=== PATIENT | female | born 1985 | race Caucasian/White ===

== ENCOUNTER 2016-07-17 08:00 | Outpatient (CLI) | payer MEDICAID | END 2016-07-17 08:01 | disposition home or self-care (01) | DX: Z13.9 Encounter for screening, unspecified (principal); M13.849 Other specified arthritis, unspecified hand ==

== ENCOUNTER 2019-08-03 13:28 | Outpatient (CLI) | payer MEDICAID ==
[2019-08-03 18:19] LABS: BASOPHILS % (AUTO) 0.4 %; EOSINOPHILS # (AUTO) 0.2 10^3/uL (0.0-0.7); EOSINOPHILS % (AUTO) 2.8 %; LYMPHOCYTES % (AUTO) 35.2 %; MEAN CORPUSCULAR HEMOGLOBIN 27.8 pg (27.0-31.0); MEAN CORPUSCULAR VOLUME 86.8 fL (81.0-99.0); MEAN PLATELET VOLUME 12.2 fL (7.9-10.8); MONOCYTES # (AUTO) 0.4 10^3/uL (0.0-1.0); MONOCYTES % (AUTO) 7.3 %; NEUTROPHILS # (AUTO) 3.1 10^3/uL (1.5-6.6); NEUTROPHILS % (AUTO) 53.9 %; PLT - PLATELET COUNT 192 10^3/uL (130-450); RED BLOOD COUNT 4.68 10^6/uL (4.20-5.40); RED CELL DISTRIBUTION WIDTH 13.6 % (12.0-15.0); WHITE BLOOD COUNT 5.7 x10^3/uL (4.8-10.8)
[2019-08-03 18:43] LABS: ALBUMIN 4.6 g/dL (3.2-5.5); ALBUMIN/GLOBULIN RATIO 1.8 (1.0-2.2); ALKALINE PHOSPHATASE 55 IU/L (42-121); ALT ALANINE AMINOTRANSFERASE 22 IU/L (10-60); AST ASPARTATE AMINOTRANSFERASE 20 IU/L (10-42); BILIRUBIN,TOTAL 0.6 mg/dL (0.2-1.0); BUN - BLOOD UREA NITROGEN 7 mg/dL (6-20); CALCIUM 9.1 mg/dL (8.5-10.3); CARBON DIOXIDE - CO2 26 mmol/L (21-32); CHLORIDE 106 mmol/L (101-111); CHOL/HDL RATIO 5.4 (<4.4); CHOLESTEROL 205 mg/dL; CREATININE 0.6 mg/dL (0.4-1.0); GFR - MDRD 115 (>89); GLUCOSE 96 mg/dL (70-100); HDL CHOLESTEROL 38 mg/dL; LDL CHOLESTEROL,CALCULATED 103 mg/dL; LDL/HDL RATIO 2.7 (<4.4); SODIUM 139 mmol/L (135-145); TOTAL PROTEIN 7.2 g/dL (6.7-8.2); VLDL CHOLESTEROL 64 mg/dL
== END 2019-08-03 23:59 | disposition home or self-care (01) ==
LOC: LAB.N 13:28
PROVIDERS: ATTEND Nurse Practitioner Gerontology
DX: Z00.00 Encounter for general adult medical examination without abnormal findings (principal)
CPT/HCPCS: 36415; 80050; 80061; 83721

== ENCOUNTER 2019-11-30 14:26 | Outpatient (CLI) | payer MEDICAID ==
--- NOTE | 2019-11-30 16:36 | XRAY Report ---
PROCEDURE: Foot 3 View RT INDICATIONS: CHRONIC PAIN OVER FIBULA RIGHT TECHNIQUE: 3 views of the foot were acquired. COMPARISON: None FINDINGS: Bones: No fractures or dislocations. No suspicious bony lesions. Soft tissues: No tibiotalar joint effusion. Achilles tendon appears normal. IMPRESSION: Unremarkable radiographic examination of right foot. Reviewed by: Mart Santiago MD on 11/30/2019 4:34 PM PDT Approved by: Mart Santiago MD on 11/30/2019 4:34 PM PDT Station ID: [id number]
== END 2019-11-30 14:27 | disposition home or self-care (01) ==
LOC: DI 14:26
PROVIDERS: ATTEND Podiatrist
DX: M79.671 Pain in right foot (principal); G89.29 Other chronic pain

== ENCOUNTER 2020-08-15 07:00 | Outpatient (CLI) | payer MEDICAID ==
--- NOTE | 2020-08-15 12:30 | XRAY Report ---
PROCEDURE: Lumbar Spine 2 View INDICATIONS: LUMBAR RADICULOPATHY TECHNIQUE: 2 views of the lumbar spine were acquired. COMPARISON: None. FINDINGS: No fracture. Scattered multilevel endplate spurring and diffuse facet arthropathy. Mild narrowing of the L5-S1 disc space. Soft tissues: Overlying bowel gas pattern is normal. No suspicious soft tissue calcifications. IMPRESSION: Mild lumbar spondylosis, most pronounced at L5-S1. Reviewed by: Arnulfo Cortes MD on 08/15/2020 12:28 PM PST Approved by: Arnulfo Cortes MD on 08/15/2020 12:28 PM PST Station ID: [id number]
== END 2020-08-15 23:59 | disposition home or self-care (01) ==
LOC: DI.N 07:00
PROVIDERS: ATTEND Family Medicine
DX: M47.816 Spondylosis without myelopathy or radiculopathy, lumbar region (principal); M47.817 Spondylosis without myelopathy or radiculopathy, lumbosacral region

== ENCOUNTER 2022-10-30 11:54 | Outpatient (CLI) | payer MEDICAID ==
[2022-10-30 17:48] LABS: BASOPHILS % (AUTO) 0.6 %; EOSINOPHILS # (AUTO) 0.2 10^3/uL (0.0-0.7); EOSINOPHILS % (AUTO) 3.4 %; HCT - HEMATOCRIT 41.6 % (37.0-47.0); HGB - HEMOGLOBIN 13.4 g/dL (12.0-16.0); LYMPHOCYTES # (AUTO) 1.8 10^3/uL (1.5-3.5); LYMPHOCYTES % (AUTO) 28.4 %; MEAN CORPUSCULAR HEMOGLOBIN 28.8 pg (27.0-31.0); MEAN CORPUSCULAR HGB CONC 32.2 g/dL (32.0-36.0); MEAN CORPUSCULAR VOLUME 89.3 fL (81.0-99.0); MEAN PLATELET VOLUME 12.5 fL (7.9-10.8); MONOCYTES # (AUTO) 0.3 10^3/uL (0.0-1.0); MONOCYTES % (AUTO) 5.5 %; NEUTROPHILS # (AUTO) 3.8 10^3/uL (1.5-6.6); NEUTROPHILS % (AUTO) 61.6 %; PLT - PLATELET COUNT 224 10^3/uL (130-450); RED BLOOD COUNT 4.66 10^6/uL (4.20-5.40); RED CELL DISTRIBUTION WIDTH 13.9 % (12.0-15.0); WHITE BLOOD COUNT 6.2 x10^3/uL (4.8-10.8)
[2022-10-30 18:20] LABS: ALBUMIN 4.5 g/dL (3.2-5.5); ALBUMIN/GLOBULIN RATIO 1.6 (1.0-2.2); ALKALINE PHOSPHATASE 74 IU/L (42-121); ALT ALANINE AMINOTRANSFERASE 25 IU/L (10-60); AST ASPARTATE AMINOTRANSFERASE 18 IU/L (10-42); BILIRUBIN,TOTAL 0.4 mg/dL (0.2-1.0); BUN - BLOOD UREA NITROGEN 9 mg/dL (6-20); CALCIUM 9.1 mg/dL (8.5-10.3); CARBON DIOXIDE - CO2 25 mmol/L (21-32); CHLORIDE 110 mmol/L (101-111); CHOL/HDL RATIO 6.8 (<4.4); CHOLESTEROL 260 mg/dL; CREATININE 0.7 mg/dL (0.4-1.0); GFR - MDRD 95 (>89); GLUCOSE 101 mg/dL (70-100); HDL CHOLESTEROL 38 mg/dL; LDL CHOLESTEROL,CALCULATED 163 mg/dL; LDL/HDL RATIO 4.3 (<4.4); POTASSIUM 4.1 mmol/L (3.5-5.0); SODIUM 139 mmol/L (135-145); TOTAL PROTEIN 7.4 g/dL (6.7-8.2); TRIGLYCERIDES 297 mg/dL; VLDL CHOLESTEROL 59 mg/dL
[2022-10-30 18:22] LABS: THYROID STIMULATING HORMONE 0.96 uIU/mL (0.34-5.60)
== END 2022-10-30 11:55 | disposition home or self-care (01) ==
LOC: LAB.N 11:54
PROVIDERS: ATTEND Physician Assistant Medical
DX: Z00.00 Encounter for general adult medical examination without abnormal findings (principal)
CPT/HCPCS: 36415; 80050; 80061; 83721

== ENCOUNTER 2022-12-15 07:16 | Emergency (ER) | payer MEDICAID ==
[2022-12-15 08:20] LABS: BASOPHILS # (AUTO) 0.1 10^3/uL (0.0-0.1); BASOPHILS % (AUTO) 0.5 %; EOSINOPHILS # (AUTO) 0.2 10^3/uL (0.0-0.7); EOSINOPHILS % (AUTO) 2.1 %; HCT - HEMATOCRIT 41.9 % (37.0-47.0); LYMPHOCYTES # (AUTO) 1.9 10^3/uL (1.5-3.5); MEAN CORPUSCULAR HEMOGLOBIN 28.9 pg (27.0-31.0); MEAN CORPUSCULAR HGB CONC 33.4 g/dL (32.0-36.0); MEAN CORPUSCULAR VOLUME 86.4 fL (81.0-99.0); MEAN PLATELET VOLUME 11.4 fL (7.9-10.8); MONOCYTES # (AUTO) 0.6 10^3/uL (0.0-1.0); MONOCYTES % (AUTO) 6.2 %; NEUTROPHILS # (AUTO) 6.8 10^3/uL (1.5-6.6); NEUTROPHILS % (AUTO) 70.8 %; PLT - PLATELET COUNT 249 10^3/uL (130-450); RED BLOOD COUNT 4.85 10^6/uL (4.20-5.40); WHITE BLOOD COUNT 9.6 x10^3/uL (4.8-10.8)
[2022-12-15 08:35] LABS: ALBUMIN 5.1 g/dL (3.2-5.5); ALBUMIN/GLOBULIN RATIO 1.5 (1.0-2.2); BILIRUBIN,TOTAL 0.3 mg/dL (0.2-1.0); CALCIUM 9.2 mg/dL (8.5-10.3); CREATININE 0.8 mg/dL (0.4-1.0); POTASSIUM 3.3 mmol/L (3.5-5.0); TOTAL PROTEIN 8.6 g/dL (6.7-8.2)
[2022-12-15 09:28] LABS: BILIRUBIN,URINE NEGATIVE (NEGATIVE); GLUCOSE, URINE (UA) NEGATIVE (NEGATIVE); KETONES,URINE (UA) NEGATIVE (NEGATIVE); LEUKOCYTE ESTERASE, URINE NEGATIVE (NEGATIVE); NITRITE,URINE NEGATIVE (NEGATIVE); OCCULT BLOOD,URINE NEGATIVE (NEGATIVE); PH,URINE 5.5 PH (5.0-7.5); PROTEIN,URINE NEGATIVE (NEGATIVE); UROBILINOGEN,URINE 0.2 (NORMAL) E.U./dL (NORMAL)
[2022-12-15 09:56] LABS: CLARITY,URINE CLEAR (CLEAR); HCG UR QUAL NEGATIVE
[2022-12-15] MEDS ORDERED: iohexoL-300 100 ML VIAL IVP ONE (10:33)
--- NOTE | 2022-12-15 11:04 | CT Report ---
PROCEDURE: ABDOMEN/PELVIS W INDICATIONS: severe rectal pain ? abscess CONTRAST: Only 15 mL's IV infused prior to IV malfunction. TECHNIQUE: After the administration of contrast, 5 mm thick sections acquired from the diaphragms to the symphys is. 5 mm thick coronal and sagittal reformats were acquired. For radiation dose reduction, the foll owing was used: automated exposure control, adjustment of mA and/or kV according to patient size. COMPARISON: None FINDINGS: Image quality: Excellent. Lung bases and heart: Unremarkable. Liver: No solid mass. Gallbladder and biliary tree: Spleen: No splenomegaly. Pancreas: No pancreatic ductal dilation. Adrenals: No adrenal nodule. Kidneys and ureters: No hydronephrosis. No renal cystic lesion which requires follow up. No solid mas s. Bowel and peritoneum: No bowel distension. No pathologic free fluid. The rectum has a normal appearan ce with no evidence of abscess or wall thickening to explain rectal pain. Lymph nodes: No central or retroperitoneal adenopathy. Vessels: No infrarenal aortic aneurysm. PELVIS Reproductive organs: The uterus is normal. Bladder: No abnormal wall thickening, accounting for underdistension. Pelvic lymph nodes: No pelvic adenopathy by size criteria. Bones: No aggressive osseous abnormality. Other: No significant ventral or inguinal hernia. IMPRESSION: 1. No acute abdominal or pelvic abnormality. 2. No abnormality of the rectum to explain rectal pain. Reviewed by: Natalio Obregon on 12/15/2022 10:02 AM DONTA Approved by: Natalio Obregon on 12/15/2022 10:02 AM DONTA Station ID: [id number]
[2022-12-15] MEDS ORDERED: HYDROmorphone 1 MG/ML CARPUJECT IM STA (11:18)
[2022-12-15] MEDS ORDERED: ONDANSETRON ODT 4 MG TABLET TL STA (11:18)
--- NOTE | 2022-12-15 12:12 | ED Physician Documentation ---
History of Present Illness - Stated complaint Stated Complaint: FEMALE - Chief complaint Chief Complaint: General - History obtained from History obtained from: Patient - History of Present Illness Timing: Today - Additonal information Additional information: Mago Harden is a 37-year-old female has had some problems with hemorrhoids in the past and she usually takes some MiraLAX. She has had some problem with pain in her rectum on and off from her hemorrhoids and today she has severe pain she feels like she might even have a thrombosed hemorrhoid. She is not able to feel a mass but she is not able to sit down. She has never had her hemorrhoids hurt quite this bad. She denies any diarrhea and she denies any bleeding. She denies feeling a mass. She does confirm that she has tenderness and pain. Her symptoms are not entirely new. She indicates that she has had problems with this for some time. Review of Systems Constitutional: denies: Fever, Chills Ears: denies: Ear pain Nose: denies: Congestion Throat: denies: Sore throat Respiratory: denies: Cough GI: reports: Other (rectal pain). denies: Nausea, Vomiting, Constipation, Diarrhea : denies: Dysuria, Frequency PD PAST MEDICAL HISTORY - Past Medical History Cardiovascular: None Respiratory: None Neuro: None Endocrine/Autoimmune: None GI: None : None Psych: None Musculoskeletal: None Derm: None - Past Surgical History Past Surgical History: No - Present Medications Home Medications: Ambulatory Orders Medication Instructions Recorded Confirmed Multivitamin [Multiple Vitamins] 1 tab PO DAILY 04/11/20 12/15/22 Gabapentin [Neurontin] 300 mg PO TID 12/15/22 12/15/22 Hydrocortisone [Anusol-Hc] 1 gm RC BID #30 gm 12/15/22 - Allergies Allergies/Adverse Reactions: Allergies Allergy/AdvReac Type Severity Reaction Status Date / Time No Known Drug Allergies Allergy Verified 04/11/20 16:12 - Social History Does the pt smoke?: Yes Smoking Status: Light tobacco smoker PD ED PE NORMAL - Vitals Vital signs reviewed: Yes (hypertensive ) - General General: Alert and oriented X 3, No acute distress, Well developed/nourished, Other (standing in the room ) - HEENT HEENT: Atraumatic, PERRL, EOMI - Respiratory Respiratory: No respiratory distress - Abdomen Abdomen: Normal bowel sounds, Soft, Non tender, Non distended, No organomegaly - Rectal Rectal: Other (skin tags but no external hemorrhoid. tender internal hemorrhoid without mass or fluctuance to indicated abscess. Unable to adequately examine secondary to pain. ) - Derm Derm: Normal color, Warm and dry, No rash - Extremities Extremities: No deformity, No edema - Neuro Neuro: Alert and oriented X 3, screen printing paster 2-12 intact, No motor deficit, No sensory deficit, Normal speech Eye Opening: Spontaneous Motor: Obeys Commands Verbal: Oriented GCS Score: 15 - Psych Psych: Normal mood, Normal affect Results - Vitals Vitals: Vital Signs - 24 hr 12/15/22 12/15/22 07:24 12:41 Temperature 36.2 C L 36.9 C Heart Rate 87 77 Respiratory 20 15 Rate Blood Pressure 141/85 H 127/91 H O2 Saturation 99 98 Oxygen O2 Source Room air - Labs Labs: Laboratory Tests 12/15/22 12/15/22 12/15/22 08:14 08:14 09:10 WBC 9.6 RBC 4.85 Hgb 14.0 Hct 41.9 MCV 86.4 MCH 28.9 MCHC 33.4 RDW 14.0 Plt Count 249 MPV 11.4 H Neut # (Auto) 6.8 H Lymph # (Auto) 1.9 Callahan # (Auto) 0.6 Eos # (Auto) 0.2 Baso # (Auto) 0.1 Absolute Nucleated RBC 0.00 Nucleated RBC % 0.0 Sodium 139 Potassium 3.3 L Chloride 106 Carbon Dioxide 24 Anion Gap 9.0 BUN 13 Creatinine 0.8 Estimated GFR (MDRD) 81 L Glucose 115 H Calcium 9.2 Total Bilirubin 0.3 AST 22 ALT 26 Alkaline Phosphatase 85 Total Protein 8.6 H Albumin 5.1 Globulin 3.5 Albumin/Globulin Ratio 1.5 Lipase 33 Urine Color YELLOW Urine Clarity CLEAR Urine pH 5.5 Ur Specific [place] <=1.005 Urine Protein NEGATIVE Urine Glucose (UA) NEGATIVE Urine Ketones NEGATIVE Urine Occult Blood NEGATIVE Urine Nitrite NEGATIVE Urine Bilirubin NEGATIVE Urine Urobilinogen 0.2 (NORMAL) Ur Leukocyte Esterase NEGATIVE Ur Microscopic Review NOT INDICATED Urine Culture Comments NOT INDICATED Urine HCG, Qual NEGATIVE - Rads (name of study) CT ab/pel w Relevant Findings:: Prelim report reviewed (Impression: 1. No acute abdominal or pelvic abnormality. No abnormality of the rectum to explain rectal pain), EMP independent interpretation of test PD Medical Decision Making - ED course Complexity details: reviewed old records, reviewed results, re-evaluated patient, considered differential, d/w patient Reviewed Lab Results: We reviewed a complete blood count showing a normal white blood cell count normal hemoglobin hematocrit and platelets chemistries were remarkable for a serum potassium low at 3.3 otherwise normal kidney and liver function urinalysis unremarkable negative test. My interpretation of these benign- appearing laboratory tests are the patient does not likely have an overwhelming infection or overwhelming process. No evidence of or urinary tract infection. ED course: 37-year-old female with a chronic problem with hemorrhoids and rectal pain presents to the emergency department like she might have a thrombosed hemorrhoid with marked increase in her pain. We did not find a thrombosed hemorrhoid. We did find tender internal hemorrhoids. I felt that the possibility of an abscess was significant enough that I ordered a CT scan of the abdomen pelvis with contrast and we did not find a reason to suspect abscess on the scan. I will turn my attention to treating the hemorrhoidal inflammation itself. The patient was able to sit on the bed after receiving pending pain medication. We will start the patient on some Proctofoam and have her follow-up with her primary. Departure - Departure Disposition: 01 Home, Self Care Clinical Impression: Hemorrhoids Qualifiers: Hemorrhoid type: unspecified Qualified Code(s): K64.9 - Unspecified hemorrhoids Condition: Stable Instructions: ED Hemorrhoids Follow-Up: Yesi Mccord PA-C [Primary Care Provider] - Prescriptions: Hydrocortisone [Anusol-Hc] 1 gm RC BID #30 gm Comments: Mago, today it looks like your hemorrhoids are inflamed and this is the likely the cause of your pain. We are providing some anti-inflammatory steroid in the form of Proctofoam which has an applicator allowing you to place the steroid into the rectum. This has been E scribed to the [facility] in [place]. The expectation with treatment is steady improvement in your pain and inflammation. A follow-up with your primary care doctor is indicated. If you have worsening of your symptoms despite this treatment a return visit for reevaluation is indicated. Discharge Date/Time: 12/15/22 12:42
[2022-12-15 12:46] VITALS: BP 127/91
== END 2022-12-15 12:42 | disposition home or self-care (01) ==
LOC: ED 07:16
DX: F17.200 Nicotine dependence, unspecified, uncomplicated (principal); K64.8 Other hemorrhoids
CPT/HCPCS: 36415; 74177; 80053; 81003; 81025; 83690; 85025; 96374; 99284; J1170; Q0162; Q9967; 81001; 87086

== ENCOUNTER 2023-04-15 14:15 | Outpatient (CLI) | payer MEDICAID ==
[2023-04-15 17:55] LABS: BASOPHILS % (AUTO) 0.4 %; EOSINOPHILS # (AUTO) 0.1 10^3/uL (0.0-0.7); EOSINOPHILS % (AUTO) 1.3 %; HCT - HEMATOCRIT 40.3 % (37.0-47.0); HGB - HEMOGLOBIN 12.8 g/dL (12.0-16.0); LYMPHOCYTES % (AUTO) 21.6 %; MEAN CORPUSCULAR HEMOGLOBIN 28.2 pg (27.0-31.0); MEAN CORPUSCULAR HGB CONC 31.8 g/dL (32.0-36.0); MEAN CORPUSCULAR VOLUME 88.8 fL (81.0-99.0); MEAN PLATELET VOLUME 11.8 fL (7.9-10.8); MONOCYTES # (AUTO) 0.5 10^3/uL (0.0-1.0); MONOCYTES % (AUTO) 4.9 %; NEUTROPHILS # (AUTO) 6.5 10^3/uL (1.5-6.6); NEUTROPHILS % (AUTO) 71.5 %; PLT - PLATELET COUNT 241 10^3/uL (130-450); RED BLOOD COUNT 4.54 10^6/uL (4.20-5.40); WHITE BLOOD COUNT 9.1 x10^3/uL (4.8-10.8)
[2023-04-15 18:07] LABS: ALBUMIN 4.7 g/dL (3.2-5.5); ALBUMIN/GLOBULIN RATIO 1.9 (1.0-2.2); ALKALINE PHOSPHATASE 75 IU/L (42-121); ALT ALANINE AMINOTRANSFERASE 19 IU/L (10-60); AST ASPARTATE AMINOTRANSFERASE 15 IU/L (10-42); BILIRUBIN,TOTAL 0.3 mg/dL (0.2-1.0); BUN - BLOOD UREA NITROGEN 7 mg/dL (6-20); CALCIUM 9.6 mg/dL (8.5-10.3); CARBON DIOXIDE - CO2 26 mmol/L (21-32); CHLORIDE 106 mmol/L (101-111); CREATININE 0.7 mg/dL (0.6-1.3); CRP - C-REACTIVE PROTEIN < 0.5 mg/dL (<0.5); GFR - MDRD 94 (>89); GLUCOSE 95 mg/dL (74-104); POTASSIUM 3.6 mmol/L (3.5-4.5); SODIUM 138 mmol/L (135-145); TOTAL PROTEIN 7.2 g/dL (6.4-8.9)
[2023-04-15 18:18] LABS: THYROID STIMULATING HORMONE 1.63 uIU/mL (0.34-5.60)
== END 2023-04-15 14:30 | disposition home or self-care (01) ==
LOC: LAB.N 14:15
PROVIDERS: ATTEND Family Medicine
DX: R07.89 Other chest pain (principal)
CPT/HCPCS: 36415; 80050; 85651; 86140

== ENCOUNTER 2023-04-15 16:33 | Outpatient (CLI) | payer MEDICAID ==
--- NOTE | 2023-04-15 18:02 | XRAY Report ---
PROCEDURE: Chest 2 View X-Ray INDICATIONS: CHEST DISCOMFORT,ATYPICAL TECHNIQUE: 2 views of the chest were acquired. COMPARISON: None. FINDINGS: Surgical changes and devices: None. Lungs and pleura: No pleural effusions or pneumothorax. Lungs are clear. Mediastinum: Mediastinal contours appear normal. Heart size is normal. Bones and chest wall: No suspicious bony lesions. Overlying soft tissues appear unremarkable. IMPRESSION: No acute cardiopulmonary process. Reviewed by: Shirley Monreal MD on 04/15/2023 6:01 PM [facility] Approved by: Shirley Monreal MD on 04/15/2023 6:01 PM PST Station ID: [id number]
== END 2023-04-15 16:34 | disposition home or self-care (01) ==
LOC: DI 16:33
PROVIDERS: ATTEND Family Medicine
DX: R07.89 Other chest pain (principal)
CPT/HCPCS: 36415; 80050; 85651; 86140

== ENCOUNTER 2023-05-28 08:00 | Outpatient (CLI) | payer MEDICAID ==
[2023-05-28 21:14] LABS: BACTERIAL VAGINOSIS DNA NEGATIVE (NEGATIVE); CANDIDA GLABRATA DNA NEGATIVE (NEGATIVE); CANDIDA GROUP DNA NEGATIVE (NEGATIVE); CANDIDA KRUSEI DNA NEGATIVE (NEGATIVE); TRICHOMONAS VAGINALIS DNA NEGATIVE (NEGATIVE)
== END 2023-05-28 23:59 | disposition home or self-care (01) ==
LOC: LAB 08:00
PROVIDERS: ATTEND Physician Assistant Medical
DX: L29.8 Other pruritus (principal)
CPT/HCPCS: 81514

== ENCOUNTER 2023-07-01 09:40 | Day surgery (SDC) | payer MEDICAID ==
[~2023-07-01 09:40] MED LIST: ACETAMINOPHEN 500 MG TABLET PO ONE; ceFAZolin 2 GM VIAL ONE; metroNIDAZOLE 500 MG/100 ML 500 MG/100 ML BAG ONE
[2023-07-01 10:14] LABS: HCG UR QUAL NEGATIVE
[2023-07-01] MEDS ORDERED: LACTATED RINGERS 1,000 ML IV ONE ×3 (10:28→12:06)
[2023-07-01] MEDS ORDERED: ACETAMINOPHEN 1,000 MG/100 ML 1,000 MG/100 ML BAG IV ONE ×2 (10:36→10:48)
[2023-07-01] MEDS ORDERED: LIDOCAINE 1%-EPI 1:100000 20 ML MDV ONE (11:05)
[2023-07-01] MEDS ORDERED: LIDOCAINE OINTMENT 5% 35.44 GM TUBE ONE ×2 (11:05→11:53)
[2023-07-01] MEDS ORDERED: BUPIVACAINE 0.25% PF 10 ML VIAL ONE (11:05)
[2023-07-01] MEDS ORDERED: SCOPOLAMINE PATCH TOP ONE (11:06)
--- NOTE | 2023-07-01 11:06 | ANESTHESIA ---
Pre-Anesthesia VS, & Labs - Diagnosis fistula - Procedure EUA Vital Signs: Temp Pulse Resp BP Pulse Ox O2 Flow Rate 36.3 C L 80 18 123/80 99 07/01/23 10:06 07/01/23 10:06 07/01/23 10:06 07/01/23 10:06 07/01/23 10:06 Height: 5 ft 7 in Weight (kg): 105 kg Body Mass Index: 36.2 BMI Classification: Obese - NPO >8 hours - Is Patient ?: No - Lab Results Lab results reviewed: Yes Home Medications and Allergies Home Medications: Ambulatory Orders Cyclobenzaprine [Flexeril] 10 mg PO TID PRN 06/24/23 Ibuprofen [Motrin] 600 mg PO Q6H PRN 06/24/23 polyethylene glycoL 3350 [Miralax] 17 gm PO DAILY 06/24/23 Cyclobenzaprine [Flexeril] 10 mg PO TID PRN 06/24/23 Ibuprofen [Motrin] 600 mg PO Q6H PRN 06/24/23 polyethylene glycoL 3350 [Miralax] 17 gm PO DAILY 06/24/23 Allergies/Adverse Reactions: Allergies Allergy/AdvReac Type Severity Reaction Status Date / Time No Known Drug Allergies Allergy Verified 04/11/20 16:12 Anes History & Medical History - Anesthetic History Anesthesia Complications: reports: Post-Operative Nausea/Vomiting Family history of Anesthesia Complications: Denies Family history of Malignant Hyperthermia: Denies - Medical History Cardiovascular: reports: None, Other (PVCs) Pulmonary: reports: None, Other (recent cold, smoker) Gastrointestinal: reports: None Urinary: reports: None Neuro: reports: None Musculoskeletal: reports: Chronic back pain Endocrine/Autoimmune: reports: None Blood Disorders: reports: None Skin: reports: Eczema Smoking Status: Light tobacco smoker Psychosocial: reports: No issues indicated, Cannabis History of Cancer?: No - Surgical History General: reports: Other Exam General: Alert, Oriented x3, Cooperative Dental: WNL Mouth Openin Fingerbreadth Neck Mobility: Normal Mallampati classification: II Thyromental Distance: 4-6 cm Respiratory: Lungs clear Cardiovascular: Regular rate Plan Anesthesia Type: General, Total IV Consent for Procedure(s) Verified and Reviewed: Yes Code Status: Attempt Resuscitation ASA classification: 2-Mild systemic disease Is this case an emergency?: No
[2023-07-01] MEDS ORDERED: MIDAZOLAM 2 MG/2 ML VIAL ONE (11:10)
[2023-07-01] MEDS ORDERED: PROPOFOL 500 MG/50 ML 500 MG/50 ML VIAL ONE (11:10)
[2023-07-01] MEDS ORDERED: fentaNYL 100 MCG/2 ML VIAL ONE (11:10)
[2023-07-01] MEDS ORDERED: KETAMINE 200 MG/20 ML VIAL ONE (11:11)
[2023-07-01] MEDS ORDERED: ONDANSETRON 4 MG/2 ML VIAL ONE (11:21)
[2023-07-01] MEDS ORDERED: BUPIVACAINE 0.25% PF 10 ML VIAL SUBQ ONE (11:48)
[2023-07-01] MEDS ORDERED: LIDOCAINE 1%-EPI 1:100000 30 ML MDV SUBQ ONE (11:48)
[2023-07-01] MEDS ORDERED: PROPOFOL 200 MG/20 ML VIAL IVP ONE (11:48)
[2023-07-01] MEDS ORDERED: LIDOCAINE OINTMENT 5% 35.44 GM TUBE TOP ONE (11:57)
[2023-07-01] MEDS ORDERED: SCOPOLAMINE PATCH TOP SCH (12:00)
[2023-07-01] MEDS ORDERED: ACETAMINOPHEN 500 MG TABLET PO PRN (12:04)
[2023-07-01] MEDS ORDERED: ONDANSETRON 4 MG/2 ML VIAL IVP PRN (12:04)
[2023-07-01] MEDS ORDERED: oxyCODONE 5 MG TABLET PO PRN (12:04)
[2023-07-01] MEDS ORDERED: HYDROmorphone 0.5 MG/0.5 ML SYRINGE IVP PRN (12:04)
--- NOTE | 2023-07-01 12:18 | OPERATIVE REPORT ---
Operative Report - General Procedure Date: 07/01/23 Planned Procedure: Exam under anesthesia, possible fistulotomy, possible seton placement Pre-Op Diagnosis: Fistula in a no Procedure Performed: Exam under anesthesia, fistulotomy Post Op Diagnosis: Fistula in a no - Procedure Note Primary Surgeon: Dr. Princess Kraft Anesthesia Provider: Delaney Morales CRNA Anesthesia Technique: Local, MAC Pathology: none Estimated Blood Loss (mL): 3 Indications: The patient had a perirectal abscess several months ago, and continues to have drainage from her posterior midline. She was seen and examined in the clinic where it was felt that she had a fistula in a no, that could not be fully assessed at the time of her previous visit. We discussed the risks, benefits, and alternatives of an exam under anesthesia with possible seton placement, possible fistulotomy. Risks include but are not limited to bleeding, infection, damage to surrounding structures, incontinence, and the need for further surgeries or procedures. The patient voiced understanding, her questions were answered, and she wished to proceed. A consent was signed by the patient prior to the procedure. Findings: 1. 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 Preop antibiotics and ERAS medications were given. Anesthesia was induced to the appropriate level of consciousness. The patient was then placed in lithotomy position and prepped and draped in the usual sterile fashion. A preop surgical timeout was performed. Next, a nikky field block and bilateral pudendal nerve block was performed using 0.25% Marcaine with epinephrine mixed 50-50 with 2% lidocaine plain. A total of 30 mL of local were used. Then, a well-lubricated, small Hill-Pollack retractor was placed.The patient was noted to have a short fistula in the posterior midline which included approximately 10% of the external sphincter. A lacrimal probe was passed through the fistula tract with minimal resistance. Due to the minimal sphincter involvement, I elected to perform a fistulotomy. This was performed with electrocautery. The fistula tract was opened and fulgurated. Additional local was injected into the area of the fistula. Lidocaine jelly and a hemostatic dressing were placed. The patient tolerated the procedure well. There were no complications. She was transferred to the recovery room in stable condition. Postop instructions: 1. Sitz baths in warm water for 10 to 15 minutes at least 3 times a day for at least 1 week, then slowly decrease the frequency 2. Apply lidocaine ointment after sitz bath to affected area as needed. Lidocaine patch can be applied after bowel movements even if a sitz bath is unable to be performed. 3. Tylenol, ibuprofen, and oxycodone for pain control 4. Follow-up with me in clinic in 2 weeks
[2023-07-01 12:33] VITALS: BP 117/77; O2SAT 95
--- NOTE | 2023-07-01 13:57 | ANESTHESIA POST OP EVALUATION ---
Anesthesia Post Eval - Post Anesthesia Eval Vitals: Last Vital Signs Temp 36.6 C 07/01/23 12:21 Pulse 70 07/01/23 12:21 Resp 15 07/01/23 12:21 BP 117/77 07/01/23 12:21 Pulse Ox 95 07/01/23 12:21 O2 Flow Rate CV Function Including HR & BP: Stable Pain Control: Satisfactory Nausea & Vomiting: Negative Mental Status: Baseline Respiratory Status: Airway Patent Hydration Status: Satisfactory Anesthesia Complications: None
== END 2023-07-01 09:41 | disposition home or self-care (01) ==
LOC: SDS 09:40
PROVIDERS: ATTEND Surgery
DX: K60.3 Anal fistula (principal); E66.9 Obesity, unspecified; Z68.36 Body mass index [BMI] 36.0-36.9, adult; F17.200 Nicotine dependence, unspecified, uncomplicated
CPT/HCPCS: 46270; 81025; A9270; J0131; J3490; J7120

== ENCOUNTER 2023-10-26 10:51 | Outpatient (CLI) | payer MEDICAID ==
--- NOTE | 2023-10-26 11:40 | XRAY Report ---
PROCEDURE: Chest 2V INDICATIONS: TIGHT CHEST TECHNIQUE: 2 views of the chest were acquired. COMPARISON: None. FINDINGS: Surgical changes and devices: None. Lungs and pleura: No pleural effusions or pneumothorax. Lungs are clear. Mediastinum: Mediastinal contours appear normal. Heart size is normal. Bones and chest wall: No suspicious bony lesions. Overlying soft tissues appear unremarkable. IMPRESSION: No acute cardiopulmonary process. Reviewed by: Campos Landers MD on 10/26/2023 10:39 AM DONTA Approved by: Campos Landers MD on 10/26/2023 10:39 AM DONTA Station ID: [id number]
== END 2023-10-26 10:52 | disposition home or self-care (01) ==
LOC: DI 10:51
PROVIDERS: ATTEND Emergency Medicine
DX: R07.89 Other chest pain (principal)

== ENCOUNTER 2023-12-03 10:38 | Outpatient (CLI) | payer MEDICAID ==
[2023-12-03 12:21] LABS: BASOPHILS % (AUTO) 0.6 %; EOSINOPHILS # (AUTO) 0.1 10^3/uL (0.0-0.7); EOSINOPHILS % (AUTO) 2.2 %; HCT - HEMATOCRIT 40.6 % (37.0-47.0); HGB - HEMOGLOBIN 13.4 g/dL (12.0-16.0); LYMPHOCYTES # (AUTO) 1.7 10^3/uL (1.5-3.5); LYMPHOCYTES % (AUTO) 26.4 %; MEAN CORPUSCULAR VOLUME 87.9 fL (81.0-99.0); MEAN PLATELET VOLUME 12.3 fL (7.9-10.8); MONOCYTES # (AUTO) 0.4 10^3/uL (0.0-1.0); MONOCYTES % (AUTO) 6.9 %; NEUTROPHILS % (AUTO) 63.6 %; PLT - PLATELET COUNT 235 10^3/uL (130-450); RED BLOOD COUNT 4.62 10^6/uL (4.20-5.40); RED CELL DISTRIBUTION WIDTH 13.4 % (12.0-15.0); WHITE BLOOD COUNT 6.3 x10^3/uL (4.8-10.8)
[2023-12-03 12:58] LABS: CALCIUM 9.7 mg/dL (8.5-10.3); CREATININE 0.8 mg/dL (0.6-1.3); THYROID STIMULATING HORMONE 1.51 uIU/mL (0.34-5.60)
[2023-12-03 21:25] LABS: ESTIMATED AVERAGE GLUCOSE 100 mg/dL (70-100); HEMOGLOBIN A1c% 5.1 % (4.27-6.07)
== END 2023-12-03 10:39 | disposition home or self-care (01) ==
LOC: LAB.N 10:38
PROVIDERS: ATTEND Nurse Practitioner Family
DX: I95.1 Orthostatic hypotension (principal); E66.9 Obesity, unspecified; R00.0 Tachycardia, unspecified
CPT/HCPCS: 36415; 80048; 83036; 84443; 85025

== ENCOUNTER 2024-02-11 08:00 | Outpatient (CLI) | payer MEDICAID | END 2024-02-11 23:59 | disposition home or self-care (01) | LOC: LAB.N 08:00 | PROVIDERS: ATTEND Physician Assistant Medical | DX: R30.0 Dysuria (principal) | CPT/HCPCS: 87086 ==